=== PATIENT | male | born 1985 | race Caucasian/White ===

== ENCOUNTER 2016-11-22 02:44 | Emergency (ER) | payer SELFPAY ==
--- NOTE | 2016-11-22 04:07 | ERRECORD ---
[facility] EMERGENCY RECORD HPI ANXIETY (03:20 LLDO) CHIEF COMPLAINT: Patient presents for evaluation of anxiety, Patient presents for evaluation of shortness of breath, Patient presents for evaluation of chest pain, Denies palpitations, Patient presents for evaluation of sx started 2 days ago. been hyperventilating. tingling in extremities but not today. can't get a good, deep breath. diffuse bilateral, anterior chest pains intermittently. no radiation. no diaphoresis, pain radiation, nausea or lightheadedness. HISTORIAN: History provided by patient. LOCATION: Symptoms are generalized. QUALITY: Patient is alert and oriented to person, place and time, Abdulaziz coma score is 15. SEVERITY: Maximum severity of symptoms severe, Currently symptoms are moderate. ASSOCIATED WITH: No associated hallucinations, Associated with loss of appetite, Associated with substance abuse, No associated tremulousness. EXACERBATED BY: Patient's condition exacerbated by alcohol abuse, Patient's condition exacerbated by financial issues, Patient's condition exacerbated by personal problems, Patient's condition exacerbated by history of previous episodes. RELIEVED BY: Patient's condition relieved by prescription medications, clonazepam. ROS CONSTITUTIONAL: Negative constitutional review of systems. (03:42 LLDO) EYES: Negative eye review of systems, Historian denies eye pain, denies eye redness, denies eye discharge. (03:47 LLDO) ENT: Negative ears, nose, throat review of systems, Historian denies otalgia, denies rhinorrhea, denies sinus pain, denies sore throat. (03:47 LLDO) CARDIOVASCULAR: Historian reports chest pain, no radiation, Historian denies diaphoresis, denies dyspnea on exertion. though he appears in nad at all. see hpi. (03:42 LLDO) RESPIRATORY: Negative respiratory review of systems, Historian denies cough, denies shortness of breath, denies sputum. (03:47 LLDO) GI: Negative gastrointestinal review of systems, Historian denies abdominal pain, denies constipation, denies diarrhea, denies nausea, denies vomiting. (03:47 LLDO) MUSCULOSKELETAL: Negative musculoskeletal review of systems, Historian denies arthralgias, denies fall, denies injury, denies myalgias. (03:47 LLDO) NEUROLOGIC: Historian reports paresthesias. (03:42 LLDO) HEMO/LYMPHATIC: Normal hematologic/lymphatic system review, Historian denies abnormal blood clotting, denies gum bleeding, denies petechiae. (03:47 LLDO) ALLERGIC/IMMUNOLOGIC: Normal allergy/immunologic system review, Historian denies eczema, denies environmental allergies, denies food &a-1R&a+25V*p+0X*h6381R*c202B*c15G*c2P*p-0X&a-25V&a+1R Name: Lawson Linton : 1985 M31 MedRec: [id number] AcctNum: [id number] Prepared: [facility] Nov 24, 2016 06:19 by Interface Page 1 of 4 pMD [facility] EMERGENCY RECORD allergies. (03:47 LLDO) PSYCHIATRIC: Negative psychiatric review of systems, Historian denies alcohol abuse, denies anxiety, denies depression, denies drug abuse, denies hallucinations. (03:47 LLDO) NOTES: All systems reviewed, negative except as described above. (03:42 LLDO) PAST MEDICAL HISTORY MEDICAL HISTORY: Notes: DENIES. (02:53 LPOL) MALE SURGICAL HISTORY: Patient has no surgical history. (02:53 LPOL) PSYCHIATRIC HISTORY: Psychiatric history includes, anxiety. (02:53 LPOL) SOCIAL HISTORY: Patient denies alcohol use, Patient denies drug use, Patient has no smoking history, Lives in shelter, [facility]. (02:53 LPOL) NOTES: Nursing records reviewed, Agree with nursing records, Medication list reviewed. (03:45 LLDO) KNOWN ALLERGIES NKDA CURRENT MEDICATIONS (02:58 LPOL) clonazePAM: TABLET : Strength - 0.5 mg : ORAL Patient Dose: 1 mg Oral once a day.NON-COMPLIANT. VITAL SIGNS (02:49 LPOL) VITAL SIGNS: BP: 118/72, Pulse: 84, Resp: 20, Temp: 97.3 (Tympanic), O2 sat: 99 on Room Air, Time: 11/22/2016 02:49. PHYSICAL EXAM CONSTITUTIONAL: Vital signs reviewed, Patient afebrile, Pulse normal, Blood pressure normal, Respiratory rate normal, Patient appears, uncomfortable, Patient appears in pain, Patient alert and oriented to person, place and time. (03:44 LLDO) HEAD: Head exam normal, Head exam included findings of head atraumatic, normocephalic. (03:47 LLDO) EYES: Eye exam normal, Eye exam included findings of eyelids normal to inspection, Pupils equally round and reactive to light, Extraocular muscles intact. (03:47 LLDO) ENT: ENT exam normal, Ear exam normal, Nose exam normal. (03:47 LLDO) NECK: Neck exam normal, Neck exam included findings of normal range of motion, Trachea midline, no meningeal signs, no tenderness. (03:47 LLDO) RESPIRATORY CHEST: Respiratory and chest exam normal, Respiratory exam included findings of no respiratory distress, Breath sounds clear, Chest exam included findings of chest movement symmetrical, &a-1R&a+25V*p+0X*l7363T*c202B*c15G*c2P*p-0X&a-25V&a+1R Name: Lawson Linton : 1985 M31 MedRec: [id number] AcctNum: [id number] Prepared: [facility] Nov 24, 2016 06:19 by Interface Page 2 of 4 pMD [facility] EMERGENCY RECORD Chest expansion equal. (03:47 LLDO) CARDIOVASCULAR: Cardiovascular assessment normal, Cardiovascular exam included findings of heart rate regular rate and rhythm, Heart sounds normal. (03:47 LLDO) ABDOMEN MALE: Abdominal exam normal, Abdominal exam included findings of abdomen nontender, Bowel sounds normal, no peritoneal signs. (03:47 LLDO) BACK: Back exam normal, Back exam included findings of normal inspection, range of motion normal. (03:47 LLDO) UPPER EXTREMITY: Upper extremity exam normal, Upper extremity exam included findings of inspection normal, Range of motion normal. (03:47 LLDO) LOWER EXTREMITY: Lower extremity exam normal, Lower extremity exam included findings of inspection normal, Range of motion normal. (03:47 LLDO) NEURO: Abdulaziz coma scale 15, Neuro exam findings include patient oriented to person, place and time, Speech normal, Gait normal, Memory normal, Cranial nerves intact, Deep tendon reflexes normal, no focal motor deficits, no focal sensory deficits, no cerebellar deficits, no nystagmus. (03:44 LLDO) SKIN: Skin exam normal, Skin exam included findings of skin warm, dry, and normal in color, no rash. (03:47 LLDO) PSYCHIATRIC: Psychiatric exam normal, Psychiatric exam included findings of patient oriented to person place and time, Normal affect, Judgment normal. (03:47 LLDO) DOCTOR NOTES (03:53 LLDO) TEXT: pt swore his friends would come and pick him up. when confronted by the nurses he admitted that was not the case. he made several phone calls, including the [facility], without success. He then called his parents in [place] and wanted them to drive 8 hours in the middle of the night so he could get some drugs. eventually he left after receiving no meds from us and a very small script for clonazepam and the phone number of [facility]. also, when told the ekg did not suggest any cardiac ischemia, the chest pain he was having disappeared. PATIENT PLAN: The patient will be discharged. PROBLEM LIST No recorded problems DIAGNOSIS (03:49 LLDO) FINAL: PRIMARY: ANXIETY DISORDER UNSPECIFIED. PRESCRIPTION (03:50 LLDO) clonazePAM: TABLET : 1 mg : ORAL : Quantity: 1 Unit: tab(s) Route: ORAL Schedule: once a day Dispense: 15 Unit: tab(s) May substitute. Refills: No Refills . NOTES: No Refills. &a-1R&a+25V*p+0X*b5267P*c202B*c15G*c2P*p-0X&a-25V&a+1R Name: Lawson Linton : 1985 M31 MedRec: [id number] AcctNum: [id number] Prepared: [facility] Nov 24, 2016 06:19 by Interface Page 3 of 4 pMD [facility] EMERGENCY RECORD DISPOSITION PATIENT: Disposition Type: Discharge, Disposition: *Discharge Home. (03:49 LLDO) Patient left the department. (03:59 LPOL) Mancini: LLDO=MD Ortiz, Quinn LPOL=MARIA Johns, Gin &a-1R&a+25V*p+0X*t7442U*c202B*c15G*c2P*p-0X&a-25V&a+1R Name: Lawson Linton : 1985 M31 MedRec: [id number] AcctNum: [id number] Prepared: [facility] Nov 24, 2016 06:19 by Interface Page 4 of 4 pMD MTDD
--- NOTE | 2016-11-22 04:11 | PICIS ---
[facility] EMERGENCY RECORD TRIAGE (MonNov 22, 2016 02:51 LPOL) TRIAGE NOTES: "Terrible anxiety, about to " left Clonazepam at home in [place]. (MonNov 22, 2016 02:51 LPOL) PATIENT: NAME: Lawson Linton, AGE: 31, GENDER: male, : [facility] 1985, TIME OF GREET: MonNov 22, 2016 02:44, PREFERRED LANGUAGE: Swazi, ETHNICITY: Not or , FALL RISK: NO, ECODE BILLING MAP: [facility], SSN: [id number], Zip Code: [address], KG WEIGHT: 88.45 (est.), PHONE: , , , PERSON ID: [id number], PCP: Edvin NguyenKenton). (MonNov 22, 2016 02:51 LPOL) COMPLAINT: ANXIETY ATTACK, CHEST PAINS. (MonNov 22, 2016 02:51 LPOL) ADMISSION: URGENCY: 4 Non Urgent, ADMISSION SOURCE: Home, TRANSPORT: Walk-in, BED: TRIAGE. (MonNov 22, 2016 02:51 LPOL) SIRS SCORING: Heart Rate 55-109 (0), Temp range 96.8-101.1 (0), respiratory rate 12-24 (0), Latest WBC 3-14.9 (0), Mental Status altered: no (0). (02:53 LPOL) TRIAGE SCREENING: Patient denies suicidal ideation, Patient denies presence of domestic violence. (02:53 LPOL) PROVIDERS: TRIAGE NURSE: Gin Johns RN. (MonNov 22, 2016 02:51 LPOL) VITAL SIGNS: BP 118/72, Pulse 84, Resp 20, Temp 97.3, (Tympanic), O2 Sat 99, on Room Air, Time 11/22/2016 02:49. (02:49 LPOL) PREVIOUS VISIT ALLERGIES: NKDA. (MonNov 22, 2016 02:51 LPOL) NKDA. (02:53 LPOL) KNOWN ALLERGIES NKDA CURRENT MEDICATIONS (02:58 LPOL) clonazePAM: TABLET : Strength - 0.5 mg : ORAL Patient Dose: 1 mg Oral once a day.NON-COMPLIANT. VITAL SIGNS (02:49 LPOL) VITAL SIGNS: BP: 118/72, Pulse: 84, Resp: 20, Temp: 97.3 (Tympanic), O2 sat: 99 on Room Air, Time: 11/22/2016 02:49. NURSING PROCEDURE: COMMUNICATIONS (03:10 ADEA) COMMUNICATIONS: Notes: PATIENT WAS ADVISED THAT NO NARCOTIC OR MIND ALTERING MEDICATION WOULD BE GIVEN UNLESS AN ADULT DANCE THERAPIST WAS PHYSICALLY PRESENT IN THE ER. NURSING PROCEDURE: DISCHARGE NOTE (03:56 LPOL) DISCHARGE: Patient discharged to home, ambulating without assistance, patient walking, Summary of Care printed/ provided, Patient requested and was provided an electronic copy of Discharge Instructions, Transition record given to patient, Discharge instructions given to patient, Simple or moderate discharge teaching performed, by rama, Prescriptions given and instructions on side &a-1R&a+25V*p+0X*v0838L*c202B*c15G*c2P*p-0X&a-25V&a+1R Name: Lawson Linton : 1985 M31 MedRec: [id number] AcctNum: [id number] Prepared: [facility] Nov 24, 2016 06:24 by Interface Page 1 of 5 pMD [facility] EMERGENCY RECORD effects given, Above person(s) verbalized understanding of discharge instructions and follow-up care, Patient treated and evaluated by physician. BELONGINGS: Belongings and valuables with patient upon arrival to the Emergency Department include:, Belongings remain with patient, Valuables remain with patient. NURSING PROCEDURE: EKG CHART (03:09 LPOL) EK lead EKG performed on the left chest, done by rama, EKG. FOLLOW-UP: After procedure, EKG for interpretation given to Dr. Alcantar. NURSING PROCEDURE: NURSE NOTES NURSES NOTES: Notes: Patient unable to find a ride. Upset because have to have ride at bedside before mind altering drugs are administered in the ER. (03:39 LPOL) Notes: Dr. Alcantar spoke with family. Family not going to come for drug administration. Patient is aware. Patient instructed by MD not to frequent ER for mind altering drugs. (03:41 LPOL) ORDER DETAILS Order Name: EKG 12 Lead in Emergency Room, Status: Active, Time: 03:02 11/22/2016, User: ROMEO, - Ordered for: MD Alcantar Lloyd, - Entered by: MD Alcantar Lloyd - Tue Nov 22, 2016 03:02, - Quantity: 1. HPI ANXIETY (03:20 LLDO) CHIEF COMPLAINT: Patient presents for evaluation of anxiety, Patient presents for evaluation of shortness of breath, Patient presents for evaluation of chest pain, Denies palpitations, Patient presents for evaluation of sx started 2 days ago. been hyperventilating. tingling in extremities but not today. can't get a good, deep breath. diffuse bilateral, anterior chest pains intermittently. no radiation. no diaphoresis, pain radiation, nausea or lightheadedness. HISTORIAN: History provided by patient. LOCATION: Symptoms are generalized. QUALITY: Patient is alert and oriented to person, place and time, Henderson coma score is 15. SEVERITY: Maximum severity of symptoms severe, Currently symptoms are moderate. ASSOCIATED WITH: No associated hallucinations, Associated with loss of appetite, Associated with substance abuse, No associated tremulousness. EXACERBATED BY: Patient's condition exacerbated by alcohol abuse, Patient's condition exacerbated by financial issues, Patient's condition exacerbated by personal problems, Patient's condition exacerbated by history of previous episodes. RELIEVED BY: &a-1R&a+25V*p+0X*v1936T*c202B*c15G*c2P*p-0X&a-25V&a+1R Name: Lawson Linton : 1985 M31 MedRec: [id number] AcctNum: [id number] Prepared: [facility] Nov 24, 2016 06:24 by Interface Page 2 of 5 pMD [facility] EMERGENCY RECORD Patient's condition relieved by prescription medications, clonazepam. ROS CONSTITUTIONAL: Negative constitutional review of systems. (03:42 LLDO) EYES: Negative eye review of systems, Historian denies eye pain, denies eye redness, denies eye discharge. (03:47 LLDO) ENT: Negative ears, nose, throat review of systems, Historian denies otalgia, denies rhinorrhea, denies sinus pain, denies sore throat. (03:47 LLDO) CARDIOVASCULAR: Historian reports chest pain, no radiation, Historian denies diaphoresis, denies dyspnea on exertion. though he appears in nad at all. see hpi. (03:42 LLDO) RESPIRATORY: Negative respiratory review of systems, Historian denies cough, denies shortness of breath, denies sputum. (03:47 LLDO) GI: Negative gastrointestinal review of systems, Historian denies abdominal pain, denies constipation, denies diarrhea, denies nausea, denies vomiting. (03:47 LLDO) MUSCULOSKELETAL: Negative musculoskeletal review of systems, Historian denies arthralgias, denies fall, denies injury, denies myalgias. (03:47 LLDO) NEUROLOGIC: Historian reports paresthesias. (03:42 LLDO) HEMO/LYMPHATIC: Normal hematologic/lymphatic system review, Historian denies abnormal blood clotting, denies gum bleeding, denies petechiae. (03:47 LLDO) ALLERGIC/IMMUNOLOGIC: Normal allergy/immunologic system review, Historian denies eczema, denies environmental allergies, denies food allergies. (03:47 LLDO) PSYCHIATRIC: Negative psychiatric review of systems, Historian denies alcohol abuse, denies anxiety, denies depression, denies drug abuse, denies hallucinations. (03:47 LLDO) NOTES: All systems reviewed, negative except as described above. (03:42 LLDO) PAST MEDICAL HISTORY MEDICAL HISTORY: Notes: DENIES. (02:53 LPOL) MALE SURGICAL HISTORY: Patient has no surgical history. (02:53 LPOL) PSYCHIATRIC HISTORY: Psychiatric history includes, anxiety. (02:53 LPOL) SOCIAL HISTORY: Patient denies alcohol use, Patient denies drug use, Patient has no smoking history, Lives in assisted, [facility]. (02:53 LPOL) NOTES: Nursing records reviewed, Agree with nursing records, Medication list reviewed. (03:45 LLDO) PHYSICAL EXAM CONSTITUTIONAL: Vital signs reviewed, Patient afebrile, Pulse &a-1R&a+25V*p+0X*j2204V*c202B*c15G*c2P*p-0X&a-25V&a+1R Name: Lawson Linton : 1985 M31 MedRec: [id number] AcctNum: [id number] Prepared: [facility] Nov 24, 2016 06:24 by Interface Page 3 of 5 pMD [facility] EMERGENCY RECORD normal, Blood pressure normal, Respiratory rate normal, Patient appears, uncomfortable, Patient appears in pain, Patient alert and oriented to person, place and time. (03:44 LLDO) HEAD: Head exam normal, Head exam included findings of head atraumatic, normocephalic. (03:47 LLDO) EYES: Eye exam normal, Eye exam included findings of eyelids normal to inspection, Pupils equally round and reactive to light, Extraocular muscles intact. (03:47 LLDO) ENT: ENT exam normal, Ear exam normal, Nose exam normal. (03:47 LLDO) NECK: Neck exam normal, Neck exam included findings of normal range of motion, Trachea midline, no meningeal signs, no tenderness. (03:47 LLDO) RESPIRATORY CHEST: Respiratory and chest exam normal, Respiratory exam included findings of no respiratory distress, Breath sounds clear, Chest exam included findings of chest movement symmetrical, Chest expansion equal. (03:47 LLDO) CARDIOVASCULAR: Cardiovascular assessment normal, Cardiovascular exam included findings of heart rate regular rate and rhythm, Heart sounds normal. (03:47 LLDO) ABDOMEN MALE: Abdominal exam normal, Abdominal exam included findings of abdomen nontender, Bowel sounds normal, no peritoneal signs. (03:47 LLDO) BACK: Back exam normal, Back exam included findings of normal inspection, range of motion normal. (03:47 LLDO) UPPER EXTREMITY: Upper extremity exam normal, Upper extremity exam included findings of inspection normal, Range of motion normal. (03:47 LLDO) LOWER EXTREMITY: Lower extremity exam normal, Lower extremity exam included findings of inspection normal, Range of motion normal. (03:47 LLDO) NEURO: Henderson coma scale 15, Neuro exam findings include patient oriented to person, place and time, Speech normal, Gait normal, Memory normal, Cranial nerves intact, Deep tendon reflexes normal, no focal motor deficits, no focal sensory deficits, no cerebellar deficits, no nystagmus. (03:44 LLDO) SKIN: Skin exam normal, Skin exam included findings of skin warm, dry, and normal in color, no rash. (03:47 LLDO) PSYCHIATRIC: Psychiatric exam normal, Psychiatric exam included findings of patient oriented to person place and time, Normal affect, Judgment normal. (03:47 LLDO) EVENTS TRANSFER: Triage to Emergency Triage. (MonNov 22, 2016 02:51 LPOL) Emergency Triage to Main ED -03. (02:51 LPOL) Removed from Emergency Main ED -03. (03:59 LPOL) DOCTOR NOTES (03:53 LLDO) &a-1R&a+25V*p+0X*e6930V*c202B*c15G*c2P*p-0X&a-25V&a+1R Name: Lawson Linton : 1985 M31 MedRec: [id number] AcctNum: [id number] Prepared: [facility] Nov 24, 2016 06:24 by Interface Page 4 of 5 pMD [facility] EMERGENCY RECORD TEXT: pt swore his friends would come and pick him up. when confronted by the nurses he admitted that was not the case. he made several phone calls, including the [facility], without success. He then called his parents in [place] and wanted them to drive 8 hours in the middle of the night so he could get some drugs. eventually he left after receiving no meds from us and a very small script for clonazepam and the phone number of [facility]. also, when told the ekg did not suggest any cardiac ischemia, the chest pain he was having disappeared. PATIENT PLAN: The patient will be discharged. PROBLEM LIST No recorded problems DIAGNOSIS (03:49 LLDO) FINAL: PRIMARY: ANXIETY DISORDER UNSPECIFIED. DISPOSITION PATIENT: Disposition Type: Discharge, Disposition: *Discharge Home. (03:49 LLDO) Patient left the department. (03:59 LPOL) INSTRUCTION (03:53 LLDO) DISCHARGE: ANXIETY REACTION. FOLLOWUP: Follow up with Primary Care Physician as soon as possible. SPECIAL: Follow-up with [facility] ( ). PRESCRIPTION (03:50 LLDO) clonazePAM: TABLET : 1 mg : ORAL : Quantity: 1 Unit: tab(s) Route: ORAL Schedule: once a day Dispense: 15 Unit: tab(s) May substitute. Refills: No Refills . NOTES: No Refills. IMAGING *EKG: Image captured from scanner. (03:19 LPOL) *DISCHARGE INSTRUCTIONS RECEIPT: Image captured from scanner. (03:58 LPOL) *SUPPLY CHARGE SHEET: Image captured from scanner. (03:58 LPOL) ADMIN DIGITAL SIGNATURE: MARIA Abarca, Sky. (03:51 ADEJere) MD Alcantar Lloyd. (MonNov 24, 2016 06:12 LLDO) Mancini: ADEA=MARIA Abarca Andrea LLDO=MD Alcantar Lloyd LPOL=MARIA Johns, Gin &a-1R&a+25V*p+0X*i7870Y*c202B*c15G*c2P*p-0X&a-25V&a+1R Name: LintonLawson tena : 1985 M31 MedRec: [id number] AcctNum: [id number] Prepared: MonNov 24, 2016 06:24 by Interface Page 5 of 5 pMD [facility] MEDICATION RECONCILIATION You were seen in the Emergency Department on: MonNov 22, 2016 KNOWN ALLERGIES NKDA HOME MEDICATIONS CONTINUE PRESCRIBED clonazePAM : TABLET : Strength - 0.5 mg : ORAL Continue as prescribed Patient had been takin mg Oral once a day. Comment: NON-COMPLIANT. Notes from the emergency department Reviewed with patient PRESCRIPTIONS (1) &a-1R&a+25V*p+0X*h3542V*c202B*c15G*c2P*p-0X&a-25V&a+1R Name: Lawson Linton : 1985 M31 MedRec: [id number] AcctNum: [id number] Prepared: MonNov 24, 2016 06:24 by Interface pMD MTDJohnna
== END 2016-11-22 03:55 | disposition home or self-care (01) ==
LOC: MADERS 02:44
DX: F41.9 Anxiety disorder, unspecified (principal); Z79.899 Other long term (current) drug therapy
CPT/HCPCS: 93005